=== PATIENT | female | born 1975 | race Caucasian/White ===

== ENCOUNTER 2019-01-10 04:53 | Observation (INO) ==
--- NOTE | 2018-12-25 13:51 | PAT Medication Instructions ---
Medication Instructions Date of Service December 25, 2018 Home Medications acetaminophen 1,000 mg PO DAILY PRN bupropion HCl 150 mg PO QAM ketotifen fumarate [Zaditor] 1 drp OPHTHALMIC (EYE) Q12H PRN loratadine [Allergy Relief (loratadine)] 10 mg PO DAILY PRN ondansetron 4 mg PO Q8H PRN rizatriptan 10 mg PO DAILY PRN simvastatin 10 mg PO QAM venlafaxine 150 mg PO QAM DO NOT take the morning of surgery loratadine [Allergy Relief (loratadine)] 10 mg PO DAILY PRN Take morning of surgery With a small sip of water, OTHERWISE NOTHING TO EAT OR DRINK AFTER MIDNIGHT: acetaminophen 1,000 mg PO DAILY PRN (okay to take up to 4 hours prior to surgery if needed) bupropion HCl 150 mg PO QAM ketotifen fumarate [Zaditor] 1 drp OPHTHALMIC (EYE) Q12H PRN (if needed) ondansetron 4 mg PO Q8H PRN (if needed) rizatriptan 10 mg PO DAILY PRN (if needed) simvastatin 10 mg PO QAM venlafaxine 150 mg PO QAM Take evening before surgery acetaminophen 1,000 mg PO DAILY PRN (if needed) ketotifen fumarate [Zaditor] 1 drp OPHTHALMIC (EYE) Q12H PRN (if needed) loratadine [Allergy Relief (loratadine)] 10 mg PO DAILY PRN (if needed) ondansetron 4 mg PO Q8H PRN (if needed) rizatriptan 10 mg PO DAILY PRN (if needed) Other Notes If you have any questions please call us at [phone] or [phone] or [phone] or [phone]
--- NOTE | 2018-12-26 14:00 | Anesthesiology Consultation ---
Date of Service December 26, 2018 Assessment & Plan (1) Encounter for pre-operative examination: CHECK BSG AND TEST AM DOS Chart Review Chart Review: Acceptable Risk for Surgery and Patient seen in Pre Admission Testing Teaching & Discussion Instructed NPO after midnight before surgery, except medications with 15 cc of water. Medication instructions provided according to the PAT guidelines. History Surgery Operation Date: 01/10/19 07:00 Proposed Procedures p Total Laparoscopic Hysterectomy, Bilateral Salpingo-oophorectomy - Manjula Coronel s Mid-Urethral Sling and Cystoscopy - Manjula Coronel Height/Weight Height: 5 ft 7 in Weight: 142.7 kg Allergies Allergy/AdvReac Type Severity Reaction Status Date / Time aspirin AdvReac Unknown CHILD Verified 12/11/18 09:19 HAD NOSE BLEEDS Medications Home Medications Medication Instructions Recorded Confirmed Last Taken acetaminophen 1,000 mg PO DAILY PRN 12/11/18 12/11/18 Unknown bupropion HCl 150 mg PO QAM 12/11/18 12/11/18 Unknown ketotifen fumarate [Zaditor] 1 drp OPHTHALMIC (EYE) Q12H PRN 12/11/18 12/11/18 Unknown loratadine [Allergy Relief 10 mg PO DAILY PRN 12/11/18 12/11/18 Unknown (loratadine)] ondansetron 4 mg PO Q8H PRN 12/11/18 12/11/18 Unknown rizatriptan 10 mg PO DAILY PRN 12/11/18 12/11/18 Unknown simvastatin 10 mg PO QAM 12/11/18 12/11/18 Unknown venlafaxine 150 mg PO QAM 12/11/18 12/11/18 Unknown Past Medical History Medical History Abdominal pain R/T IRREGULAR MENSES Anxiety Chronic back pain Depression Environmental allergies History of seizures Pt reports remote history, was possibly misdiagnosed, no longer following with neurology, no meds. >10 yrs ago. Hx of migraines Hx of type 2 diabetes mellitus Dietary changes-->meds d/c'd, now continues to manage with diet. Hyperlipidemia Morbid obesity Osteoarthritis Seasonal allergies Stress incontinence ALSO HAS URGENCY Exercise / Class Metabolic Activity II 4-5 Yardwork/Stairs/Walk up hill (Denies CP or SOB with 1 FOS) Past Family History Family History Father Family history of diabetes mellitus Aunt Family history of diabetes mellitus Uncle Family history of diabetes mellitus Daughter Family history of diabetes mellitus Aunt No problems noted. Other FHx: breast cancer FHx: colon cancer Past Surgical History Surgical History History of dental surgery Past Anesthesia History No Hx of Anesthesia Complications and No Family Hx of Anesthesia Complications GA naive. History of PONV No Hx of PONV and No Hx of Motion Sickness Social History Smoking Status: Never smoker Do You Dip or Chew Tobacco: No Hx Alcohol Use: No Hx Substance Use: No Review of Systems Pt denies any recent chest pain, shortness of breath, palpitations, cough, fever or URI. Physical Exam Vital Signs BP: 122/80 P: 74bpm SPO2: 99% RA T: 97.8 F R: 18 Constitutional + morbidly obese ENMT Mouth: + dental restorations (few metal caps on molars); no chipped teeth and no loose teeth Thyromental Distance: > or= 3.5 Finger Breadths (4) Mallampati Class: II Neck normal visual inspection; neck extension not limited Respiratory normal respiratory effort Auscultation: lungs clear to auscultation bilaterally Cardiovascular Rate/Rhythm: regular rate and regular rhythm Heart Sounds: no murmur Testing Laboratory Results 12/26/18 14:13 Hemoglobin A1c 5.7 % (4.5-5.6) H 12/26/18 14:13 Blood Type O Positive 12/26/18 14:13 Antibody Screen NEGATIVE 12/26/18 14:13 12/18/18 WBC: 6.3 H/H: 13.7/40.2 PLATELETS: 281 Electrocardiogram Date: 12/26/18 Findings: + NSR @ (71bpm) RSR' or QR pattern in V1 suggests RVCD.
[2018-12-26 17:53] LABS: BUN Creatinine Ratio 13.8 (10-20); Calcium 8.5 mg/dl (8.5-10.1); Creatinine Clr Calc Pharmacy 142.1 ml/min; Est GFR (African American) 112.4; Est GFR (Non-African American) 96.9; Potassium 3.9 mmol/L (3.5-5.1)
[2018-12-27 07:14] LABS: Estimated Average Glucose 117 mg/dl; Hemoglobin A1C 5.7 % (4.5-5.6)
[2019-01-10] MEDS ORDERED: LACTATED RINGER'S 1,000 ML IV SCH (06:00)
[2019-01-10] MEDS ORDERED: CEFAZOLIN 3000MG 65 ML IV SCH (06:00)
[2019-01-10] MEDS ORDERED: LR 15ML/HR IV SCH (06:00)
[2019-01-10] MEDS ORDERED: fentaNYL citrate 100 MCG/2 ML VIAL ONE ×4 (06:47→10:11)
[2019-01-10] MEDS ORDERED: MIDAZOLAM HCL 1 MG/ML 2ML VIAL ONE (06:47)
[2019-01-10] MEDS ORDERED: HYDROmorphone INJ 2 MG/ML SYR/VIAL IV PRN ×2 (06:48→08:27)
[2019-01-10] MEDS ORDERED: ATROPINE SULFATE 0.1 MG/ML 10ML SYR IV PRN ×2 (06:48→08:27)
[2019-01-10] MEDS ORDERED: ePHEDrine sulfate 50 MG/ML AMP IV PRN ×2 (06:48→08:27)
[2019-01-10] MEDS ORDERED: ACETAMINOPHEN 1000 MG/100 ML IV IV ONE (06:51)
--- NOTE | 2019-01-10 06:53 | History & Physical Bridge Note ---
Date of Service January 10, 2019 History & Physical Bridge Note I have examined the patient, reviewed the History & Physical and in the interval since the performance of the History & Physical I have noted the following changes of clinical significance: no changes noted
[2019-01-10] MEDS ORDERED: BUPIVACAINE 0.5 % 5 MG/1 ML MPF 30ML VIAL ONE (07:01)
[2019-01-10] MEDS ORDERED: ePHEDrine sulfate 50 MG/ML SYR ONE (07:41)
[2019-01-10] MEDS ORDERED: DEXAMETHASONE SOD INJ 4 MG/ML VIAL ONE (07:41)
[2019-01-10] MEDS ORDERED: LIDOCAINE HCL 2% 2 ML VIAL/AMP(20MG/ML) INFIL ONE (07:41)
[2019-01-10] MEDS ORDERED: ROCURONIUM BROMIDE 10 MG/ML 5 ML VIAL ONE (07:41)
[2019-01-10] MEDS ORDERED: PROPOFOL IV EMULSION 10 MG/ML 20 ML VIAL IV ONE (07:41)
[2019-01-10] MEDS ORDERED: ONDANSETRON INJ 2 MG/ML 2 ML VIAL ONE (07:41)
[2019-01-10] MEDS ORDERED: NEOSTIGMINE METHYLSULFATE 5 MG/5 ML SYR ONE (08:44)
[2019-01-10] MEDS ORDERED: GLYCOPYRROLATE 0.2 MG/ML VIAL ONE ×2 (08:44→09:23)
[2019-01-10] MEDS ORDERED: BUPIVACAINE 0.25% 30 ML VIAL ONE (09:25)
[2019-01-10] MEDS ORDERED: VASOPRESSIN 20 UNIT/ML VIAL ONE (09:25)
[2019-01-10] MEDS ORDERED: LARYING-O-JET KIT (LTA) ONE (09:45)
--- NOTE | 2019-01-10 10:11 | Post Operative Brief Note ---
Immediate Post Op Note v1 Date of Surgery January 10, 2019 Pre & Post Diagnosis Operation Date: 01/10/19 07:00 Pre-Op Diagnosis: Pelvic Pain, Dysmenorrhea, Stress Urinary Incontinence Post-Op Diagnosis: Pelvic Pain, Dysmenorrhea, Stress Urinary Incontinence Procedure Operation Date: 01/10/19 07:00 Actual Procedures p Total Laparoscopic Hysterectomy, Bilateral Salpingo-Oophorectomy(Bilateral) - Manjula Coronel s Mid-Urethral Sling and Cystoscopy(Not Applicable) - Manjula Coronel Surgeon Manjula Coronel Microarray Specialist Carlota Spencer PA-C Estimated Blood Loss 20 Findings Consistent with Post-Op Diagnosis Drains Falcon Catheter
--- NOTE | 2019-01-10 10:35 | Operative Report ---
Post Operative Report Pre & Post Diagnosis Operation Date: 01/10/19 07:00 Pre-Op Diagnosis: Pelvic Pain, Dysmenorrhea, Stress Urinary Incontinence Post-Op Diagnosis: Pelvic Pain, Dysmenorrhea, Stress Urinary Incontinence Procedure Operation Date: 01/10/19 07:00 Actual Procedures p Total Laparoscopic Hysterectomy, Bilateral Salpingo-Oophorectomy(Bilateral) - Manjula dahl Mid-Urethral Sling and Cystoscopy(Not Applicable) - Manjula Coronel Surgeon Manjula Coronel Neonatal Critical Care Nurse Carlota Spencer PA-C Estimated Blood Loss 20 Findings See Below 1. 10 anteverted uterus 2. IUD strings not visualized through the external cervical os 3. Normal appearing ovaries bilaterally 4. Normal appearing left fallopian tube 5. Right fallopian tube with a paratubal cyst 6. Anterior and posterior cul-de-sac free of disease 7. Normal appearing liver edge 8. Normal appearing appendix 9. On cystoscopy, normal appearing bladder dome. Bladder domes free of suture or lesions 10. Brisk bilateral efflux of urine by the ureteral orifices Fluids See Anesthesia Report Specimens Uterus, cervix, bilateral fallopian tubes and ovaries Drains Juarez catheter removed prior to the end of the case. Anesthesia Type General Complications none Indications 43 yo with pelvic pain, dysmenorrhea, history of ovarian cysts and stress urinary incontinence desiring surgical management. Description of Procedure Under GA in the dorsal lithotomy position, the patient was prepped and drapped in the usual sterile fashion. Beginning at the vagina, a juarez catheter was inserted under sterile conditions and left in situ for the remainder of the case. A weighted speculum was then placed in the vagina and with the help of a right angle retractor the cervix was visualized and grasped anteriorly with a single tooth tenaculum. The uterus was sounded to 10 cm with a uterine sound. The cervical os was dilated with Hegar dilators. An [employer] uterine manipulator with a metal cup was inserted. The weighted speculum was then removed. Attention was then turned to the abdomen. 0.5% marcaine solution was used for infiltration of all port sites. Beginning in the subumbilical area, the skin was first infiltrated with ~ 2 cc of the marcaine solution, then a 5 mm incision was made through the skin with a #11 blade. Direct entry with a 5 mm trocar, sleeve, and laparoscope was made into the peritoneal cavity. The opening pressure was < 8 mmHg. The peritoneal cavity was insufflated with CO2 gas to a maximum pressure of 20 mmHg. Examination of the peritoneal cavity revealed no signs of injury from entry and normal anatomical structures. The patient was then placed in steep Trendelenburg and three more 5 mm trocars were placed, one on the right and two on the left, in the standard technique, taking care to avoid the epigastric vessels. All trocars were placed under direct visualization with no inadvertent damage to underlying structures. The uterus was upheld from below and revealed a normal uterus and normal tubes (right paratubal cyst) and ovaries. Beginning on the left side, the Infundibular ligament was identified by lifting the tube towards the anterior wall of the abdomen. The ureter was confirmed along the pelvic side wall and peristalsis was noted. The SIERRA Harmonic device was then used to clamp and ligate the IP ligament in three sequential bites with ligation. The IP was then cut middistance, again being sure to be clear of the ureter. Following this, the broad ligament was sequentially grasped, ligated, and cut in the direction of the round ligament hugging next to the fallopian tube. The round ligament was then ligated and cut, followed by the uteroovarian ligament. Following this, the anterior leaf of the broad ligament was then taken down on the left side, dissecting down towards the peritoneal reflection at the base of the bladder and adjacent to the cervix. The same process was then repeated on the right side such that both sides met and the anterior leaflet had been appropriately skeletonized. Once the bladder was appropriately dissected free from the lower anterior uterine segment and the tissues skeletonized, the uterine arteries were bilaterally clamped and ligated. Pedicles were checked and hemostatic. At the level of the metal cup of the uterine manipulator, the vaginal vault was incised circumferentially with the SIERRA Harmonic. The uterus, tubes, and ovaries was delivered through the vagina and sent to pathology. A vaginal occluder was then placed into the vagina to form a pneumatic seal and all the pedicles as well as the cuff edges were examined. The LLQ incision was move lower in the pelvis to get closer to the vaginal cuff for closure. The vaginal vault was then closed with a V-Loc barbed stitch being sure to avoid the bladder lateral pedicles. Following vault closure, an inspection of all areas was made to ensure hemostasis. Tisseal was then applied to the vaginal cuff and adnexal regions. Hemostasis was again appreciated. All ports were removed under direct visualization and hemostasis noted. All the incision sites were then closed with 4-0 monocryl sutures in a subcuticular fashion and dermabond. The juarez catheter and vaginal occluder was then removed. Cystoscopy was performed. Jenny appearing bladder dome, free of suture and lesions. Brisk bilateral efflux of urine was visualized from ureteral orifices. The cytoscope was removed without incident. The juarez catheter was replaced. Two Allis clamps were placed on the anterior vaginal mucosa. A dilute solution of vasopressin was applied, and hydrodissection was done. Incision was made. A bladder was lifted off of the vaginal mucosa with careful dissection with metzenbaum scissors. Two stab incisions were placed on the lateral thigh over the medial aspect of the obturator canal. The needles were passed through under direct palpation through the vaginal incision from the lateral thigh to the vaginal incision. The mesh arms were attached and arms were pulled back the outer plastic sheath and the excess mesh was removed. The mesh was right at the bladder neck to the mid-urethra, completely covering over the entire urethra. The sling was tension free and the mesh was cut. The vaginal mucosa was closed with 2-0 vicryl in a running fashion. The lateral skin incisions were closed with dermabond. The juarez catheter was removed. At the end of the procedure, all sponges, instruments, and sharps were counted and correct. Estimated blood loss was 50 ml. The patient was taken to recovery in stable condition. I attest to the content of the Intraoperative Record and any orders documented therein. Any exceptions are noted below.
[2019-01-10] MEDS ORDERED: CONSULT PHARMACY STA (10:41)
[2019-01-10] MEDS ORDERED: INSULIN ASPART 100 UNITS/ML 3 ML PEN SC SCH (11:30)
[2019-01-10] MEDS ORDERED: PHARMACY GLYCEMIC MGMT CONSULT PRN (11:38)
[2019-01-10] MEDS ORDERED: GLUCAGON FOR INJ 1 MG VIAL IM PRN (12:00)
[2019-01-10] MEDS ORDERED: DEXTROSE 50% 50 ML SYRINGE IV PRN (12:00)
[2019-01-10] MEDS ORDERED: GLUCOSE 10 TABS/TUBE PO PRN (12:00)
[2019-01-10] MEDS ORDERED: CARBOHYDRATES FOR HYPOGLYCEMIA PO PRN (12:00)
[2019-01-10] MEDS ORDERED: GLUCOSE 40% GEL 15 GM TUBE PO PRN (12:00)
[2019-01-10] MEDS ORDERED: ONDANSETRON 4 MG OD TAB PO PRN ×2 (13:00)
[2019-01-10] MEDS ORDERED: ONDANSETRON INJ 2 MG/ML 2 ML VIAL IV PRN (13:00)
[2019-01-10] MEDS ORDERED: OXYCODONE/ACETAMINOPHEN 5mg/325mg TAB PO PRN (13:00)
[2019-01-10] MEDS ORDERED: LORATADINE 10 MG TAB PO PRN ×2 (13:00)
[2019-01-10] MEDS ORDERED: RIZATRIPTAN BENZOATE 10 MG TAB PO PRN ×2 (13:00)
[2019-01-10] MEDS ORDERED: KETOTIFEN FUMARATE OP PRN (13:00)
[2019-01-10] MEDS: SIMETHICONE 80 MG CHEW PO SCH ×2 (13:00→19:01)
[2019-01-10] MEDS: ACETAMINOPHEN 325 MG TAB PO SCH ×2 (15:08→21:16)
[2019-01-10] MEDS: IBUPROFEN 600 MG TAB PO SCH ×2 (15:09→21:16)
[2019-01-10] MEDS ORDERED: Nursing to Pharmacy Communication ONE ×2 (15:14→17:49)
--- NOTE | 2019-01-10 16:29 | Anesthesiology Progress Note ---
Date of Service January 10, 2019 Anesthesia Post Procedure Vital Signs Vital Signs: Temp Pulse Pulse Pulse Resp BP BP 01/10/19 14:15 36.5 C 77 16 131/64 01/10/19 13:15 36.4 C L 82 18 122/72 01/10/19 12:15 36.4 C L 82 16 115/62 01/10/19 12:00 01/10/19 11:45 36.3 C L 88 20 104/59 L 01/10/19 11:15 36.3 C L 86 18 113/69 01/10/19 11:05 92 H 18 152/68 H 01/10/19 10:55 36.5 C 90 13 145/64 H 01/10/19 10:45 86 15 148/73 H 01/10/19 10:35 94 H 20 108/56 L 01/10/19 10:25 93 H 17 119/56 L 01/10/19 10:19 36.4 C L 92 H 11 L 124/68 01/10/19 05:39 37.3 C 78 18 113/95 Pulse Ox 01/10/19 14:15 94 01/10/19 13:15 93 01/10/19 12:15 94 01/10/19 12:00 88 L 01/10/19 11:45 86 L 01/10/19 11:15 92 01/10/19 11:05 96 01/10/19 10:55 93 01/10/19 10:45 91 01/10/19 10:35 95 01/10/19 10:25 98 01/10/19 10:19 94 01/10/19 05:39 98 Transfer of Care Handoff Completed per policy Notes Mental Status: alert / awake / arousable Patient Amnestic to Procedure: Yes Nausea / Vomiting: adequately controlled Pain: adequately controlled Airway Patency, RR, SpO2: stable & adequate BP & HR: stable & adequate Hydration State: stable & adequate Anesthetic Complications: no major complications apparent and Pt Satisfied with anesthetic care
--- NOTE | 2019-01-10 17:28 | Anesthesiology Progress Note ---
Date of Service January 10, 2019 Physical Exam Vital Signs: Last Vital Signs Temp 36.5 C 01/10/19 14:15 Pulse 77 01/10/19 14:15 Resp 16 01/10/19 14:15 BP 131/64 01/10/19 14:15 Pulse Ox 94 01/10/19 14:15 The patient complained of a paresthesia and numbness of her right hand post- operatively on the floor and she felt it was related to her iv in that hand. The iv was removed and warm compresses were applied. When I saw her, her hand was cool, non-tender and somewhat echymotic posteriorly. I felt there was nothing more to be done and that the symptoms would be self-limiting. I suggested that she watch it for a few days and if it did not improve she should follow up with her private physician.. Results & Data Medications Administered Acetaminophen (Tylenol) 650 mg PO Q6H RL Stop: 02/09/19 12:59 Last Admin: 01/10/19 15:08 Dose: 650 mg Documented by: [id number] Lactated Ringer's (Lr) 1,000 mls @ 15 mls/hr IV .Q24H RL Stop: 01/11/19 05:59 Last Infusion: 01/10/19 07:05 Dose: 0 mls/hr Documented by: [id number] Admin: 01/10/19 06:04 Dose: 15 mls/hr Documented by: [id number] Cefazolin Sodium (Ancef 3000mg) 65 mls @ 130 mls/hr IV PREOP RL Stop: 01/10/19 18:00 Last Admin: 01/10/19 07:03 Dose: 130 mls/hr Documented by: [id number] Ibuprofen (Motrin) 600 mg PO Q6H RL Stop: 02/09/19 12:59 Last Admin: 01/10/19 15:09 Dose: 600 mg Documented by: [id number] Simethicone (Mylicon) 80 mg PO Q6H RL Stop: 02/09/19 12:59 Last Admin: 01/10/19 13:00 Dose: Not Given Documented by: [id number]
[2019-01-10] MEDS: DOCUSATE SODIUM 100 MG CAP PO SCH (21:15)
[2019-01-11] MEDS: SIMETHICONE 80 MG CHEW PO SCH ×2 (00:21→08:52)
[2019-01-11] MEDS: IBUPROFEN 600 MG TAB PO SCH ×2 (03:14→08:54)
[2019-01-11] MEDS: ACETAMINOPHEN 325 MG TAB PO SCH ×2 (03:15→08:54)
[2019-01-11] MEDS: DOCUSATE SODIUM 100 MG CAP PO SCH (08:53)
[2019-01-11] MEDS ORDERED: BuPROPion XL 150 MG TABCR PO SCH ×2 (09:00)
[2019-01-11] MEDS ORDERED: SIMVASTATIN 10 MG TAB PO SCH ×2 (09:00)
[2019-01-11] MEDS ORDERED: VENLAFAXINE HCL XR 150 MG CAPXR PO SCH ×2 (09:00)
--- NOTE | 2019-01-13 09:21 | Discharge Summary ---
Date of Service January 13, 2019 Admission HPI Per Admitting Provider 43 year [id number] with unknown LMP using Mirena IUD for contraception presents with pelvic pain/dysmenorrhea, h/o ovarian cysts, and stress urinary incontinence. Patient with Mirena IUD in place approximately 4-5 years. Prior to IUD placement, Patient reports monthly menses, lasting 5-6 days. Bleeding was light to moderate, but the pelvic pain/dysmenorrhea was excruciating and affecting Pt's daily activities. Since the IUD insertion, pain has markedly improved. Patient is approaching time to remove IUD and Pt does not desire another IUD. Patient is concerned with continuing hormones, as well, as experiencing severe dysmenorrhea upon IUD removal. Patient had a recent TVUS for IUD placement since strings are no longer visible at the external cervical os. TVUS revealed IUD in the proper position. 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 Patient reports she will develop ovarian cyst, then they rupture, and she will experience severe pain. Patient reports being told to use tylenol for her unbearable pain. Lastly, Patient reports urinary frequency and incontinence with laugh, cough or sneeze. Denies dysuria or bowel symptoms. Admission Exam (Per Admitting) Constitutional WD/WN, vitals as above Respiratory normal respiratory effort, lungs clear to auscultation Gastrointestinal (Abdomen) normal bowel sounds, soft, nontender, no hepatosplenomegaly Discharge Data Consultations 01/10/19 14:24 Consult Anesthesiology Routine Procedures Performed Operation Date: 01/10/19 07:00 Actual Procedures p Total Laparoscopic Hysterectomy, Bilateral Salpingo-Oophorectomy(Bilateral) - Manjula Coronel s Mid-Urethral Sling and (Not Applicable) - Manjula dahl Cystoscopy(Not Applicable) - Manjula Coronel Hospital Course (1) Pelvic pain: s/p TLH/BSO/Mid-urethral sling/Cystoscopy. POD#1. Patient meeting all discharge criteria. Discharge home with instructions and medications. (2) Dysmenorrhea: (3) ANNA (stress urinary incontinence, female): (4) S/P hysterectomy: Discharge Instructions POST OPERATIVE: BOWEL FUNCTION/MEDICATIONS: 1. Constipation pain and discomfort are the most common complaints 5-7 days after surgery. Points 2-6 address the things that can help. 2. Chewing gum can help stimulate the gut and help improve digestion and motility. 3. Milk of Magnesia 1-2 times per day until return of bowel function. 4. Colace is a stool softener that helps. Taking this 2-3 times per day until bowel function returns to normal is highly recommended. 5. Dulcolax is a laxative that may be used if several days have passed without a bowel movement. Alternatively Miralax may be used daily instead. 6. Drink plenty of fluids as this will also reduce constipation. 7. Narcotic pain medications will be prescribed by your physician. They are safe to use and we encourage you to use them. If you are not allergic, ibuprofen will also be prescribed. Many patients will be able to transition off of the narcotic medications to ibuprofen by postoperative day 3. ACTIVITY RECOMMENDATIONS: 1. Get plenty of rest and listen to your body. If you are tired, take a nap. 2. You may shower, but do not take a tub bath until you see your doctor at the 2 week post operative visit. 3. Absolutely NO intercourse and nothing in the vagina until you are examined by your doctor at the 6 week visit. At that visit it will be determined when such activities can be resumed. This can range from 6-12 weeks after your surgery depending on healing time. 4. The main physical activity in the first week should be walking. By the second week you can slowly increase activity. There are no limits on walking up and down stairs. 5. Do not lift more than 5-10 lbs for 4 weeks. Remember the "one-handed rule", i.e. if you can lift something with only one hand it's likely okay. 6. Minimize senior copywriter like vacuuming and exercising for 4 weeks. "Overdoing it" can lead to incisions not healing, pain and vaginal bleeding, so again, listen to your body. 7. Driving can be resumed when you feel able. Do not drive within 24 hours of taking a narcotic medication. EXPECTATIONS: 1. Vaginal spotting, bleeding and discharge are common after surgery. There may even be an odor to the discharge which is often related to sutures used in the vagina. If you experience heavy vaginal bleeding, call the office number day or night [phone] 2. Bladder discomfort is common after surgery from the catheter. This usually resolves in 1-2 weeks. 3. By the end of the 3rd or 4th week you should be feeling much better. It may take up to 6 weeks for your energy levels to return to normal. 4. Narcotic medications have side effects such as: dizziness, headache, nausea and/or vomiting. If you suspect your pain medication is causing problems, call our office and we may be able to prescribe an alternate medication. 5. The skin incisions are often covered with a liquid bandage. This will gradually peel off over time. CALL THE OFFICE IF YOU HAVE ANY OF THE FOLLOWIN. Temperature of 101 degrees or higher. 2. Severe abdominal or pelvic pain not relieved by pain medication. 3. Persistent nausea or vomiting. 4. Increased pain with urination or difficulty urinating. 5. Bright red bleeding that soaks more than 1 pad per hour. CONTACT PHONE NUMBERS: Main Office: [phone] Avoid all tobacco products. If you need help to stop smoking, call [place]'s FREE QUITLINE at . This is a free call.
== END 2019-01-11 12:27 | disposition home or self-care (01) ==
LOC: 4N 04:53 → ASU 04:53
DX: E78.5 Hyperlipidemia, unspecified; N39.3 Stress incontinence (female) (male); N94.6 Dysmenorrhea, unspecified; Z88.6 Allergy status to analgesic agent; R10.2 Pelvic and perineal pain; G40.909 Epilepsy, unspecified, not intractable, without status epilepticus; E66.01 Morbid (severe) obesity due to excess calories; F41.9 Anxiety disorder, unspecified; M19.90 Unspecified osteoarthritis, unspecified site; Z79.899 Other long term (current) drug therapy; Z68.42 Body mass index [BMI] 45.0-49.9, adult; E11.9 Type 2 diabetes mellitus without complications; F32.9 Major depressive disorder, single episode, unspecified